=== PATIENT | female | born 1990 | race Caucasian/White ===

== ENCOUNTER 2021-11-01 15:31 | Emergency (ER) | payer SELFPAY ==
--- NOTE | 2021-11-01 15:37 | ED.URI ---
HPI - URI/Sore Throat General Chief Complaint: Ear Stated Complaint: Sore throat Time Seen by Provider: 11/01/21 15:37 Source: patient and RN notes reviewed History of Present Illness HPI Narrative: Patient is a 31-year-old female who presents the urgent care with complaints of a sore throat that started yesterday. Patient denies any fever, chills, nausea, vomiting or headache. Denies of any other upper respiratory complaints. Patient has not been COVID vaccinated and has not been exposed to COVID that she knows of. Denies of any illness in the home. Patient took Tylenol once for her symptoms but otherwise has not taken anything [id number] due to . Patient is due at the end of December. No other complaints. No acute distress noted. Patient had a plan of care. Some parts of this dictation were generated by voice recognition software and may contain typographical and/or grammatical inaccuracies. Related Data Home Medications Medication Instructions Recorded Confirmed PNV,calcium 69-wqii-slsed acid 1 tablet PO DAILY 11/01/21 11/01/21 [WesTab Plus] insulin glargine-yfgn 10 unit SUBCUT QAM 11/01/21 11/01/21 [Semglee(insulin glarg-yfgn)Pen] insulin glargine-yfgn 24 unit SUBCUT QPM 11/01/21 11/01/21 [Semglee(insulin glarg-yfgn)Pen] metformin 1,000 mg PO BID 11/01/21 11/01/21 nifedipine 30 mg PO DAILY 11/01/21 11/01/21 ondansetron 4 mg PO PRN PRN 11/01/21 11/01/21 Allergies Allergy/AdvReac Type Severity Reaction Status Date / Time azithromycin Allergy Unknown Chest Pain Verified 11/01/21 15:39 Review of Systems Review of Systems: CONSTITUTIONAL: Denies fever, chills, or sweats. EYES: Denies visual changes, redness, or discharge. ENT: Denies rhinorrhea, congestion, otalgia. Reports of sore throat CARDIOVASCULAR: Denies chest pain, palpitations, or edema. RESPIRATORY: Denies cough or dyspnea. GASTROINTESTINAL: Denies abdominal pain, nausea, vomiting, or diarrhea. GENITOURINARY: Denies dysuria or hematuria. SKIN: Denies rash or itching. MUSCULOSKELETAL: Denies back pain, joint pain, or myalgia. NEUROLOGIC: Denies headache, numbness, or weakness. All other systems reviewed are negative, except as documented in HPI. PMFSH Comments At the time of my signature, I reviewed and agree with the nursing past medical, surgical, social, and family history. There is no relevant family history pertinent to the patient complaint. Exam Narrative: GENERAL: This is a well-nourished, well-developed patient, in no apparent distress. HEAD: normocephalic, atraumatic. EYES: PERRL. Sclera clear/white. Vision is grossly intact. EARS: External ears normal, auditory canals clear and without drainage, TMs normal without perforation. Hearing grossly intact. NOSE: External nose normal with no obvious nasal discharge, nares without redness, no rhinorrhea. THROAT: Mucous membranes moist, posterior pharynx clear. Mild postnasal drainage NECK: Neck supple, non-tender without lymphadenopathy CARDIOVASCULAR: Regular rate and rhythm without murmurs, gallops, or rubs. RESPIRATORY: Clear to auscultation. Breath sounds equal bilaterally. No wheezes, rales, or rhonchi. SKIN: warm, intact with no suspicious lesions or rash, good texture and turgor. NEURO: awake, alert, and oriented to person, place and time. There were no obvious focal neurologic abnormalities. EXTREMITIES: No clubbing, cyanosis, or edema. Course Course Level of Care: Express Care Visit Vital Signs Vital signs: Vital Signs Temperature 97.6 F 11/01/21 15:43 Pulse Rate 95 11/01/21 15:43 Respiratory Rate 16 11/01/21 15:43 Blood Pressure 135/84 11/01/21 15:43 Pulse Oximetry 99 11/01/21 15:43 Temperature 97.6 F 11/01/21 15:43 Pulse Rate 95 11/01/21 15:43 Respiratory Rate 16 11/01/21 15:43 Blood Pressure 135/84 11/01/21 15:43 Pulse Oximetry 99 11/01/21 15:43 Reviewed MDM - URI/Sore Throat MDM Narrative Medical decision making na
[2021-11-01 15:43] VITALS: BP 135/84; PULSE 95; RESP 16; TEMP 36.4; O2SAT 99
== END 2021-11-01 16:12 | disposition home or self-care (01) ==
PROVIDERS: Emergency Provider Nurse Practitioner Family
DX: J02.9 Acute pharyngitis, unspecified (principal); Z20.822 Contact with and (suspected) exposure to COVID-19; I10 Essential (primary) hypertension; E11.9 Type 2 diabetes mellitus without complications; N80.9 Endometriosis, unspecified
CPT/HCPCS: 87081; 87880; 99203; G0463